=== PATIENT | male | born 2000 | race Caucasian/White ===

== ENCOUNTER 2020-02-17 18:01 | Emergency (ER) | payer OTHER ==
[~2020-02-17] VITALS: Ht 170.2 cm; Wt 75.0 kg
[2020-02-17] MEDS ORDERED: AZITHROMYCIN 250 MG TABLET PO ONE (19:15)
[2020-02-17] MEDS ORDERED: LIDOCAINE/PF 1% 2 ML VIAL IM ONE (19:15)
[2020-02-17] MEDS ORDERED: CefTRIAXone SODIUM 1 GM/VIAL IM ONE (19:15)
[2020-02-17 19:20] LABS: APPEARANCE,URINE CLOUDY (CLEAR); BILIRUBIN,URINE NEGATIVE (NEGATIVE); GLUCOSE, URINE (UA) NEGATIVE (NEGATIVE); KETONES,URINE TRACE mg/dL (NEGATIVE); LEUKOCYTE ESTERASE ,URINE MODERATE (NEGATIVE); OCCULT BLOOD,URINE LARGE (NEGATIVE); PH,URINE 5.5 (5.0-8.0); PROTEIN,URINE SEE CONFIRM (NEGATIVE); UROBILINOGEN,URINE 0.2 mg/dL (<=1.0)
[2020-02-17 19:34] LABS: SULFOSALICYLIC ACID,URINE 3+ (Negative)
[2020-02-17 19:35] LABS: BACTERIA,URINE Moderate /HPF (None Seen); NITRATE,URINE NEGATIVE (NEGATIVE); RBC,URINE 26-50 /HPF (0-2); SQUAMOUS EPITHELIAL CELL,UR Few /LPF (None Seen); WBC,URINE >100 /HPF (0-5)
[2020-02-17] MEDS ORDERED: LIDOCAINE 1% 10 ML VIAL ONE (19:36)
[2020-02-17 19:42] VITALS: BP 122/63
== END 2020-02-17 19:58 | disposition home or self-care (01) ==
LOC: EMS 18:04
DX: N39.0 Urinary tract infection, site not specified (principal)
CPT/HCPCS: 81001; 87086; 87491; 87591; 96372; 99283; J0696; J3490